=== PATIENT | male | born 1950 | race Caucasian/White ===

== ENCOUNTER → 2016-11-05 | Outpatient (CLI) | payer BC, MEDICARE ==
[~2016-11-05] VITALS: Ht 182.9 cm; Wt 129.3 kg
[~2016-11-05] MED LIST: AMLO10TA82 PO; ASP325TEC PO; ASP81CT PO; ASP81TEC PO; ATEN25TA PO; ATOR40TA PO; BENA20TA72 PO; BENZAPRIL; CATHETER FLUSH 10 ML SYR IV PRN; CEPH500C PO; CITA40TA19 PO; CPR500T PO; GLBR5T PO; HYDR-2889 PO; IBP800T PO; LEVO125T6 PO; METH4TAB PO; MTF500T PO; MTP25TSR PO; MTP50T PO; NAPR-243 PO; NFMET1000 PO; OMG1KC PO; PRAM0.257 PO; PRAS10TA6 PO; PROP1TAB77 PO; REGADENOSON 0.4 MG/5 ML SYR (LEXISCAN) IV ONE; TRM50T PO; VIT1TABL93 PO; ZOLP10TA5 PO; [UNRECOGNIZED DRUG - OTHER]; [UNRECOGNIZED DRUG - OTHER]; kenalog INJ
[2016-11-05 09:20] VITALS: BP 189/84
[2016-11-05 09:24] VITALS: BP 185/104
[2016-11-05 09:26] VITALS: BP 196/95
--- NOTE | 2016-11-07 08:49 | STRESS TEST ---
DATE OF SERVICE: 11/05/2016 RESTING AND POST REGADENOSON TECHNETIUM-99M TETROFOSMIN SPECT CT IMAGING ORDERING PHYSICIAN: Dr. Mars. PRIMARY CARE PHYSICIAN: Dr. Fields. CLINICAL DIAGNOSES: Coronary artery disease, diabetes, hypertension, hyperlipidemia. Baseline images were carried out after injection of 10.6 mCi of technetium-99m tetrofosmin. This was followed by 0.4 mg regadenoson and 28.5 mCi for stress imaging. The electrocardiogram showed sinus rhythm with frequent isolated premature ventricular contractions, sometimes in a bigeminal pattern. The electrocardiogram did not change significantly with regadenoson infusion. The patient reported some headache following regadenoson infusion, which resolved in a few minutes. Review of images at rest and following stress indicates a fixed perfusion defect in the inferolateral wall. Gated images show global hypokinesis of the left ventricle and inferolateral hypokinesis to akinesis. Left ventricular ejection fraction is calculated to be 50%. Left ventricular end diastolic volume is 178 mL. TID is absent (1). CONCLUSIONS: 1. This study is indicative of an inferolateral myocardial infarction without ischemia. 2. Inferolateral hypokinesis to akinesis. 3. Mild global hypokinesis of the left ventricle. 4. Left ventricular ejection fraction is calculated to be 50%, but appears to be subjectively somewhat lower (estimated to be 40%-45%). 5. Moderate cardiomegaly. Job ID: [id number] DocumentID: [id number] Dictated Date: 11/05/2016 13:12:36 Construction Rep Date: 11/05/2016 14:42:58 Dictated By: LYNDA MARS MD, MA, FACP, FACC,
== END ==
LOC: CARD 07:53
PROVIDERS: ATTEND Internal Medicine Cardiovascular Disease
DX: I25.10 Atherosclerotic heart disease of native coronary artery without angina pectoris (principal); R94.31 Abnormal electrocardiogram [ECG] [EKG]; E11.9 Type 2 diabetes mellitus without complications; E78.4 Other hyperlipidemia; I10 Essential (primary) hypertension; E66.09 Other obesity due to excess calories; I49.3 Ventricular premature depolarization
CPT/HCPCS: 78452; 93017

== ENCOUNTER → 2016-11-06 | Outpatient (CLI) | payer BC, MEDICARE ==
[~2016-11-06] MED LIST changes: -CATHETER FLUSH 10 ML SYR IV PRN; -REGADENOSON 0.4 MG/5 ML SYR (LEXISCAN) IV ONE
== END ==
LOC: CARD 15:12
PROVIDERS: ATTEND Internal Medicine Cardiovascular Disease
DX: I25.10 Atherosclerotic heart disease of native coronary artery without angina pectoris (principal); R94.31 Abnormal electrocardiogram [ECG] [EKG]; I49.3 Ventricular premature depolarization; I10 Essential (primary) hypertension; E78.4 Other hyperlipidemia; E11.9 Type 2 diabetes mellitus without complications; E66.09 Other obesity due to excess calories

== ENCOUNTER 2017-03-08 14:05 | Emergency (ER) | payer MEDICARE ==
[~2017-03-08] VITALS: Ht 180.3 cm; Wt 126.1 kg
--- OUTSIDE RECORDS SUMMARY | 2017-03-08 14:10 | XMS REPORT | Clinical Summary ---
Author Author [facility] Organization [facility] Address Unknown Phone Unavailable Care Team Providers Care Magneto Electrician Name Role Phone PCP Unavailable Source Comments Some departments are not documenting in the electronic medical record. If you do not see the information that you expected, contact Release of Information in the Health Information Management department at [phone] for further assistance in locating additional records.[facility] Allergies Active Allergy Reactions Severity Noted Date Comments Morphine 07/23/2006 Allergy recorded in SMS: Morphine~Reactions: "SPASMS" Current Medications Prescription Sig. Disp. Refills Start End Date Status Date propoxyphene 100 04/20/20 Active mg/acetamin 650 mg(+) 07 (DARVOCET-N 100) 100/650 mg PO Tab LEXAPRO PO 04/20/20 Active 07 XANAX PO 04/20/20 Active 07 CALCIUM + D PO 04/20/20 Active 07 VITAMIN E (BULK) MISC 04/20/20 Active 07 FISH OIL PO 04/20/20 Active 07 aspirin EC 81 mg PO TbEC 04/20/20 Active 07 KEFLEX PO 04/20/20 Active 07 Active Problems Problem Noted Date Pain in joint, pelvic region and thigh 07/08/2007 Pain in joint, lower leg 07/08/2007 Social History Tobacco Use Types Packs/Day Years Used Date Never Smoker Alcohol Use Drinks/Week oz/Week Comments No Sex Assigned at Date Recorded Not on file Last Filed Vital Signs Not on file Plan of Treatment Health Maintenance Due Date Last Done Comments HEPATITIS C SCREENING 1950 PHYSICAL (COMPREHENSIVE) 09/07/1959 EXAM PERTUSSIS VACCINE 09/07/1963 TETANUS VACCINE 1969 COLORECTAL CANCER 2002 SCREENING SHINGLES VACCINE 2012 INFLUENZA VACCINE 12/24/2016 Results Not on filefrom Last 3 Months
--- OUTSIDE RECORDS SUMMARY | 2017-03-08 14:10 | XMS REPORT | Continuity of Care Document ---
Author Author [facility] Organization [facility] Address Unknown Phone Unavailable Allergies Active Description Code Type Severity Reaction Onset Reported/Identified Relationship to Patient Clinical Status Yes morphine [id number] Drug Allergy Unknown N/A 07/22/2006 Medications Problems Date Dx Coded Attending Type Code Diagnosis Diagnosed By 06/01/2014 GALINA DOMINGUEZ, MISTY Byrd Ot 786.59 09/13/2014 MISTY MOJICA MD Ot 443.89 10/22/2014 MISTY MOJICA MD Ot 443.89 11/07/2016 ELLEN DOMINGUEZ FACC, LYNDA FACP CCDS Ot E11.9 TYPE 2 DIABETES MELLITUS WITHOUT COMPLIC 11/07/2016 ELLEN DOMINGUEZ FACC, LYNDA FACP CCDS Ot E66.09 OTHER OBESITY DUE TO EXCESS CALORIES 11/07/2016 LYNDA HUGHES MD, FACC FACP CCDS Ot E78.4 OTHER HYPERLIPIDEMIA 11/07/2016 ELLEN DOMINGUEZ FACC, LYNDA FACP CCDS Ot I10 ESSENTIAL (PRIMARY) HYPERTENSION 11/07/2016 ELLEN DOMINGUEZ FACC, LYNDA FACP CCDS Ot I25.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[place] CORONARY 11/07/2016 ELLEN DOMINGUEZ FACC, LYNDA FACP CCDS Ot I49.3 VENTRICULAR PREMATURE DEPOLARIZATION 11/07/2016 ELLEN DOMINGUEZ FACC, LYNDA FACP CCDS Ot R94.31 ABNORMAL ELECTROCARDIOGRAM [ECG ] [EKG] 11/11/2016 ELLEN DOMINGUEZ FACC, LYNDA FACP CCDS Ot E11.9 TYPE 2 DIABETES MELLITUS WITHOUT COMPLIC 11/11/2016 ELLEN DOMINGUEZ FACC, ALI FACP CCDS Ot E66.09 OTHER OBESITY DUE TO EXCESS CALORIES 11/11/2016 ELLEN DOMINGUEZ FACC, ALI FACP CCDS Ot E78.4 OTHER HYPERLIPIDEMIA 11/11/2016 ELLEN DOMINGUEZ FACC, ALI FACP CCDS Ot I10 ESSENTIAL (PRIMARY) HYPERTENSION 11/11/2016 ELLEN DOMINGUEZ FACC, ALI FACP CCDS Ot I25.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[place] CORONARY 11/11/2016 ELLEN CHENC, ALI FACP CCDS Ot I49.3 VENTRICULAR PREMATURE DEPOLARIZATION 11/11/2016 ELLEN CHENC, ALI FACP CCDS Ot R94.31 ABNORMAL ELECTROCARDIOGRAM [ECG ] [EKG] 11/13/2016 ELLEN DOMINGUEZ FACC, ALI FACP CCDS Ot E11.9 TYPE 2 DIABETES MELLITUS WITHOUT COMPLIC 11/13/2016 ELLEN DOMINGUEZ FACC, ALI FACP CCDS Ot E66.09 OTHER OBESITY DUE TO EXCESS CALORIES 11/13/2016 ELLEN CHENC, ALI FACP CCDS Ot E78.4 OTHER HYPERLIPIDEMIA 11/13/2016 ELLEN CHENC, ALI FACP CCDS Ot I10 ESSENTIAL (PRIMARY) HYPERTENSION 11/13/2016 ELLEN CHENC, ALI FACP CCDS Ot I25.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[place] CORONARY 11/13/2016 ELLEN DOMINGUEZ FACC, ALI FACP CCDS Ot I49.3 VENTRICULAR PREMATURE DEPOLARIZATION 11/13/2016 ELLEN DOMINGUEZ FACC, ALI FACP CCDS Ot R94.31 ABNORMAL ELECTROCARDIOGRAM [ECG ] [EKG] 11/13/2016 ELLEN DOMINGUEZ FACC, ALI FACP CCDS Ot E11.9 TYPE 2 DIABETES MELLITUS WITHOUT COMPLIC 11/13/2016 ELLEN DOMINGUEZ FACC, ALI FACP CCDS Ot E66.09 OTHER OBESITY DUE TO EXCESS CALORIES 11/13/2016 ELLEN DOMINGUEZ FACC, ALI FACP CCDS Ot E78.4 OTHER HYPERLIPIDEMIA 11/13/2016 ELLEN DOMINGUEZ FACC, ALI FACP CCDS Ot I10 ESSENTIAL (PRIMARY) HYPERTENSION 11/13/2016 ELLEN DOMINGUEZ FACC, ALI FACP CCDS Ot I25.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[place] CORONARY 11/13/2016 ELLEN DOMINGUEZ FACC, ALI FACP CCDS Ot I49.3 VENTRICULAR PREMATURE DEPOLARIZATION 11/13/2016 ELLEN CHENC, ALI FACP CCDS Ot R94.31 ABNORMAL ELECTROCARDIOGRAM [ECG ] [EKG] 11/13/2016 ELLEN DOMINGUEZ FACC, ALI FACP CCDS Ot E11.9 TYPE 2 DIABETES MELLITUS WITHOUT COMPLIC 11/13/2016 ELLEN DOMINGUEZ FACC, ALI FACP CCDS Ot E66.09 OTHER OBESITY DUE TO EXCESS CALORIES 11/13/2016 ELLEN CHENC, ALI FACP CCDS Ot E78.4 OTHER HYPERLIPIDEMIA 11/13/2016 ELLEN CHENC, ALI FACP CCDS Ot I10 ESSENTIAL (PRIMARY) HYPERTENSION 11/13/2016 ELLEN CHENC, ALI FACP CCDS Ot I25.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[place] CORONARY 11/13/2016 ELLEN DOMINGUEZ FACC, ALI FACP CCDS Ot I49.3 VENTRICULAR PREMATURE DEPOLARIZATION 11/13/2016 ELLEN DOMINGUEZ FACC, ALI FACP CCDS Ot R94.31 ABNORMAL ELECTROCARDIOGRAM [ECG ] [EKG] 11/28/2016 ELLEN CHENC, ALI FACP CCDS Ot E11.9 TYPE 2 DIABETES MELLITUS WITHOUT COMPLIC 11/28/2016 ELLEN DOMINGUEZ FACC, ALI FACP CCDS Ot E66.09 OTHER OBESITY DUE TO EXCESS CALORIES 11/28/2016 ELLEN DOMINGUEZ FACC, ALI FACP CCDS Ot E78.4 OTHER HYPERLIPIDEMIA 11/28/2016 ELLEN DOMINGUZE FACC, ALI FACP CCDS Ot I10 ESSENTIAL (PRIMARY) HYPERTENSION 11/28/2016 ELLEN DOMINGUEZ FACC, ALI FACP CCDS Ot I25.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[place] CORONARY 11/28/2016 ELLEN CHENC, ALI FACP CCDS Ot I49.3 VENTRICULAR PREMATURE DEPOLARIZATION 11/28/2016 ELLEN CHENC, ALI FACP CCDS Ot R94.31 ABNORMAL ELECTROCARDIOGRAM [ECG ] [EKG] 12/09/2016 ELLEN DOMINGUEZ FACC, ALI FACP CCDS Ot E11.9 TYPE 2 DIABETES MELLITUS WITHOUT COMPLIC 12/09/2016 ELLEN CHENC, ALI FACP CCDS Ot E66.09 OTHER OBESITY DUE TO EXCESS CALORIES 12/09/2016 ELLEN DOMINGUEZ FACC, ALI FACP CCDS Ot E78.4 OTHER HYPERLIPIDEMIA 12/09/2016 ELLEN DOMINGUEZ FACC, ALI FACP CCDS Ot I10 ESSENTIAL (PRIMARY) HYPERTENSION 12/09/2016 ELLEN CHENC, ALI FACP CCDS Ot I25.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[place] CORONARY 12/09/2016 ELLEN CHENC, ALI FACP CCDS Ot I49.3 VENTRICULAR PREMATURE DEPOLARIZATION 12/09/2016 ELLEN DOMINGUEZ FACC, ALI FACP CCDS Ot R94.31 ABNORMAL ELECTROCARDIOGRAM [ECG ] [EKG] 12/24/2016 GALINA DOMINGUEZ, MISTY Byrd Ot 574.20 CHOLELITHIASIS NOS Procedures Results Encounters ACCT No. Visit Date/Time Discharge Status Pt. Type Provider Facility Loc./Unit Complaint [id number] 02/19/2017 07:52:00 2016 23:59:59 CLS Preadmit ELLEN DOMINGUEZ FACC, ALI FACP CCDS [facility] RAD WEAKNESS,NAUSEA [id number] 11/06/2016 15:12:00 2016 23:59:59 CLS Outpatient ELLEN DOMINGUEZ FACC ALI FACP CCDS [facility] CARD PVC I49.3 [id number] 11/05/2016 07:30:00 2016 23:59:59 CLS Outpatient LYNDA HUGHES MD, FACC FACOmar CCDS [facility] CARD I25.10 [id number] 09/08/2014 15:13:00 2014 23:59:59 CLS Outpatient MISTY MOJICA MD [facility] RAD [id number] 12/03/2013 14:37:00 2013 23:59:59 CLS Outpatient MISTY MOJICA MD [facility] LABNPT Calculus of gallbladder without mention of cholecy [id number] 12/03/2013 16:27:00 2013 16:28:00 DIS Outpatient [id number] 11/23/2013 16:54:00 2013 23:59:59 CLS Outpatient [id number] 10/22/2013 13:56:00 2013 23:59:59 CLS Outpatient MISTY MOJICA MD [facility] CARD [id number] 04/05/2013 16:17:00 2012 23:59:59 CLS Outpatient
--- NOTE | 2017-03-08 14:32 | ED Cardiac General ---
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 He was also told that he had several small bleeds that the hat blocking machine operator wanted to observe and see back in the week or 2. Patient's had no chest pain or shortness of breath. He is checked his blood pressure home a couple times and it's been elevated above 200 systolic which to so decided to come to ER today to have it evaluated. He ran out of strips to check his blood sugar the last 3 days. He says is been taking his medications as prescribed because his makes him. He is on metoprolol for blood pressure and has a history of [address] Pina. The metoprolol was recently changed to 3 times a day because it was causing bradycardia. He denies nausea, speech changes, facial asymmetry, numbness, however he does have a history of paresthesias from his peripheral neuropathy in his hands and feet. No cough. No shortness of breath. States he recently had a echocardiogram done because a third heart sound was heard by the manager procurement. He was told everything was okay on it. Allergies and Home Medications Allergies Coded Allergies: morphine (Verified Allergy, Unknown, 07/22/06) Home Medications Amlodipine Besylate 10 Mg Tablet, 1 EACH PO DAILY, (Reported) Aspirin 81 Mg Chew, 81 MG PO BID, (Reported) Aspirin 81 Mg Tabec, 81 MG PO DAILY, (Reported) Atenolol 25 Mg Tablet, 1 EACH PO BID, (Reported) Atorvastatin Calcium 40 Mg Tablet, 40 MG PO HS, (Reported) Benazepril Hcl 20 Mg Tablet, 20 MG PO, (Reported) Ciprofloxacin 500 Mg Tablet, 1 TAB PO BID for 7 Days Prescribed by: IRA STEPHENS on 09/08/12 1128 Citalopram Hydrobromide 40 Mg Tablet, 40 MG PO DAILY, (Reported) Glyburide 5 Mg Tab, 5 MG PO BID, (Reported) Ibuprofen 800 Mg Tab, 800 MG PO Q8HR PRN, #30 Prescribed by: IRA STEPHENS on 09/08/12 1128 Levothyroxine Sodium 125 Mcg Tablet, 1 EACH PO DAILY, (Reported) Metformin Hcl 500 Mg Tablet, 500 MG PO BID WITH MEALS, (Reported) Metoprolol Tartrate 50 Mg Tablet, 50 MG PO BID, (Reported) Pramipexole Di-Hcl 0.25 Mg Tablet, 0.25 MG PO DAILY, (Reported) Tramadol Hcl 50 Mg Tab, 100 MG PO Q6H PRN, (Reported) Tramadol Hcl 50 Mg Tab, 1-2 TAB PO Q6H, #20 Prescribed by: IRA STEPHENS on 09/08/12 1128 Vit D3/Folic Acid/B2/B6/B12 1 Each Tablet, 1 EACH PO UD, (Reported) Review of Systems Constitutional: No chills, No diaphoresis, No fever EENTM: Blurred Vision, No Double Vision, No Eye Pain Respiratory: Denies Cough, Denies Shortness of Air Cardiovascular: Denies Chest Pain, Denies Edema, Denies Lightheadedness, Denies Palpitations, Denies Syncope Gastrointestinal: Denies Abdomen Distended, Denies Abdominal Pain, Denies Constipated, Denies Diarrhea, Denies Nausea, Denies Vomiting Genitourinary: Denies Burning, Denies Discharge Musculoskeletal: No joint pain, No joint swelling Skin: No pruritus, No rash Psychiatric/Neurological: Headache (occ, mild), Denies Numbness, Paresthesia ( Chronic P. Neuropathy) Past Bsozozm-Pnybfy-Cyquqo Hx Patient Social History Alcohol Use: Denies Use Recreational Drug Use: No Smoking Status: Never a Smoker Recent Foreign Travel: No Contact w/Someone Who Travel: No Reproductive System Hx Reproductive Disorders: No Genitourinary Genitourinary Disorders: Kidney Stones Gastrointestinal Gastrointestinal Disorders: Gastrointestinal Bleed Endocrine Endocrine Disorders: Diabetes, Non-Insulin dep Physical Exam Vital Signs Vital Sign - Last 12Hours 03/08/17 14:10 Temp 97.5 Pulse 62 Resp 23 B/P (MAP) 211/101 Pulse Ox 96 Capillary Refill : General Appearance: No Apparent Distress, Obese HEENT: PERRL/EOMI, Normal ENT Inspection, Pharynx Normal Neck: Full Range of Motion, Supple Respiratory: Chest Non Tender, Lungs Clear, Normal Breath Sounds Cardiovascular: Regular Rate, Rhythm, No Edema Gastrointestinal: Normal Bowel Sounds, Non Tender, Soft Extremity: Normal Capillary Refill, Non Tender, No Calf Tenderness Neurologic/Psychiatric: Alert, Oriented x3 Skin: Normal Color, Warm/Dry Progress/Results/Core Measures Results/Orders Lab Results Laboratory Tests Test 03/08/17 14:21 03/08/17 14:25 03/08/17 15:37 Range/Units Glucometer 196 H 70-110 MG/DL White Blood Count 6.8 4.3-11.0 10^3/uL Red Blood Count 4.93 4.35-5.85 10^6/uL Hemoglobin 14.2 13.3-17.7 G/DL Hematocrit 43 40-54 % Mean Corpuscular Volume 86 80-99 FL Mean Corpuscular Hemoglobin 29 25-34 PG Mean Corpuscular Hemoglobin Concent 33 32-36 G/DL Red Cell Distribution Width 14.6 H 10.0-14.5 % Platelet Count 254 130-400 10^3/uL Mean Platelet Volume 10.5 H 7.4-10.4 FL Neutrophils (%) (Auto) 59 42-75 % Lymphocytes (%) (Auto) 27 12-44 % Monocytes (%) (Auto) 8 0-12 % Eosinophils (%) (Auto) 5 0-10 % Basophils (%) (Auto) 0 0-10 % Neutrophils # (Auto) 4.1 1.8-7.8 X 10^3 Lymphocytes # (Auto) 1.8 1.0-4.0 X 10^3 Monocytes # (Auto) 0.6 0.0-1.0 X 10^3 Eosinophils # (Auto) 0.4 H 0.0-0.3 10^3/uL Basophils # (Auto) 0.0 0.0-0.1 10^3/uL Prothrombin Time 12.4 12.2-14.7 SEC INR Comment 0.9 0.8-1.4 Activated Partial Thromboplast Time 30 24-35 SEC D-Dimer 0.62 H 0.00-0.49 UG/ML Sodium Level 137 135-145 MMOL/L Potassium Level 4.4 3.6-5.0 MMOL/L Chloride Level 102 98-107 MMOL/L Carbon Dioxide Level 26 21-32 MMOL/L Anion Gap 9 5-14 MMOL/L Blood Urea Nitrogen 21 H 7-18 MG/DL Creatinine 1.18 0.60-1.30 MG/DL Estimat Glomerular Filtration Rate > 60 BUN/Creatinine Ratio 18 Glucose Level 228 H 70-105 MG/DL Calcium Level 9.6 8.5-10.1 MG/DL Magnesium Level 1.7 L 1.8-2.4 MG/DL Total Bilirubin 0.8 0.1-1.0 MG/DL Aspartate Amino Transf (AST/SGOT) 16 5-34 U/L Alanine Aminotransferase (ALT/SGPT) 21 0-55 U/L Alkaline Phosphatase 67 40-136 U/L Troponin I < 0.30 <0.30 NG/ML C-Reactive Protein High Sensitivity 0.24 0.00-0.50 MG/DL B-Type Natriuretic Peptide 190.1 H <100.0 PG/ML Total Protein 7.4 6.4-8.2 GM/DL Albumin 4.1 3.2-4.5 GM/DL Thyroid Stimulating Hormone (TSH) 2.46 0.35-4.94 UIU/ML Urine Opiates Screen NEGATIVE NEGATIVE Urine Oxycodone Screen NEGATIVE NEGATIVE Urine Methadone Screen NEGATIVE NEGATIVE Urine Propoxyphene Screen NEGATIVE NEGATIVE Urine Barbiturates Screen NEGATIVE NEGATIVE Ur Tricyclic Antidepressants Screen NEGATIVE NEGATIVE Urine Phencyclidine Screen NEGATIVE NEGATIVE Urine Amphetamines Screen NEGATIVE NEGATIVE Urine Methamphetamines Screen NEGATIVE NEGATIVE Urine Benzodiazepines Screen NEGATIVE NEGATIVE Urine Cocaine Screen NEGATIVE NEGATIVE Urine Cannabinoids Screen NEGATIVE NEGATIVE My Orders Orders - ALEIDA,CHUCK J Chest 1 View, Ap/Pa Only (03/08/17 14:) Troponin I (03/08/17 14:) Ekg Tracing (03/08/17:) Saline Lock/Iv-Start (03/08/17:) Monitor-Rhythm Ecg Trace Only (03/08/17:) BNP (03/08/17 14:) Cbc With Automated Diff (03/08/17:) Comprehensive Metabolic Panel (03/08/17:) Hs C Reactive Protein (03/08/17:) Fibrin Degradation Products (03/08/17 14:) Drug Screen Stat (Urine) (03/08/17:) Magnesium (03/08/17 14:) Protime With Inr (03/08/17:) Partial Thromboplastin Time (03/08/17 14:23) Thyroid Stimulating Hormone (03/08/17 14:23) Lisinopril Tablet (Zestril Tablet) (03/08/17 15:00) Magnesium Oxide Tablet (Mag Ox Tablet) (03/08/17 16:30) Medications Given in ED Current Medications Medications Dose Ordered Sig/Sofi Route Start Time Stop Time Status Last Admin Dose Admin Lisinopril 20 mg ONCE ONCE PO 03/08/17 15:00 03/08/17 15:01 DC 03/08/17 15:23 20 MG Vital Signs/I&O Vital Sign - Last 12Hours 03/08/17 14:10 Temp 97.5 Pulse 62 Resp 23 B/P (MAP) 211/101 Pulse Ox 96 Point of Care Testing Finger Stick Blood Glucose: 196 Blood Glucose Action Taken: RN AND DR NOTIFIED Progress Note : Time: 16:37 Progress Note Blood pressure went down very well with just rest. We'll go ahead and start him on some lisinopril given his heart history. He doesn't seem to have any contra indication of this. Another viable option would be a diuretic but we already had given him the lisinopril by the time that we saw his x-ray. We'll have him follow-up with his primary care physician or cardiology Friday. ECG Initial ECG Impression Date: Mar 08, 2017 Initial ECG Impression Time: 14:11 Initial ECG Rate: 64 Initial ECG Rhythm: Normal Sinus Initial ECG Intervals: Normal Initial ECG Impression: Normal Initial ECG Comparisson: No Previous ECG Available Comment No T-wave elevation or depression. Diagnostic Imaging Diagonstic Imaging: Xray Plain Films/CT/US/NM/MRI: chest Comments NAME: RUBEN [facility] REC#: [id number] PHYSICIAN: CHUCK SHIN MD CC: JUANY KAUR MD; CHUCK SHIN Page 1 of 1 RADIOLOGY REPORT [place]IA [place] CC: JUANY KAUR MD; CHUCK SHIN Page 1 of 1 RADIOLOGY REPORT NAME: RUBEN [facility] REC#: [id number] PT STATUS: REG ER : 1950 PHYSICIAN: CHUCK SHIN MD ADMIT DATE: 03/08/17/ER Signed Date of Exam: 03/08/17 CHEST 1 VIEW, AP/PA ONLY INDICATION: Hypertension. COMPARISON: 12/11/2010. FINDINGS: Visible lungs are clear. Please note evaluation of the lower lobes is limited by portable technique. No pleural effusion or pneumothorax. Heart is enlarged. Pulmonary vascular redistribution. IMPRESSION: 1. Cardiomegaly with suggestion of pulmonary venous hypertension. No evidence of ale pulmonary edema. Dictated by: Dictated on workstation # [id number] Dict: 03/08/17 1447 Trans: 03/08/17 1455 Interpreted by: JUANY KAUR MD Electronically signed by: JUANY KAUR MD 03/08/17 1455 Reviewed: Reviewed by Me Departure Impression Impression: Primary Impression: Asymptomatic hypertensive urgency Disposition: 01 HOME, SELF-CARE Condition: Stable Departure-Patient Inst. Decision time for Depature: 16:40 Referrals: MISTY MOJICA MD (PCP/Family) Primary Care Physician Patient Instructions: High Blood Pressure (DC) Add. Discharge Instructions: Start taking the lisinopril 20 mg once a day in the morning. If he checked her blood pressure first thing in the morning and its above 200 or your bottom number as above 100 you should double up and take 40 mg of lisinopril daily until you see your doctor. Friday morning please call Dr. Mojica and get an appointment from his clinic at [phone] this week or next. If you begin to have severe headaches, chest pain, nausea and vomiting he should return to the ER for further evaluation and management. All discharge instructions reviewed with patient and/or family. Voiced understanding. Scripts Lisinopril (Lisinopril) 20 Mg Tablet 20 MG PO DAILY for 30 Days, #30 TAB 0 Refills Prov: CHUCK SHIN 03/08/17 Copy Copies To 1: MISTY MOJICA MD Copies To 2: LYNDA HUGHES MD FACP [facility] CCDS CHUCK SHIN Mar 08, 2017 14:32
[2017-03-08 14:37] LABS: BASOPHILS % (AUTO) 0 % (0-10); EOSINOPHILS # (AUTO) 0.4 10^3/uL (0.0-0.3); EOSINOPHILS % (AUTO) 5 % (0-10); LYMPHOCYTES # (AUTO) 1.8 X 10^3 (1.0-4.0); LYMPHOCYTES % (AUTO) 27 % (12-44); MEAN CORPUSCULAR HEMOGLOBIN 29 PG (25-34); MEAN CORPUSCULAR HGB CONC 33 G/DL (32-36); MEAN CORPUSCULAR VOLUME 86 FL (80-99); MEAN PLATELET VOLUME 10.5 FL (7.4-10.4); MONOCYTES # (AUTO) 0.6 X 10^3 (0.0-1.0); MONOCYTES % (AUTO) 8 % (0-12); NEUTROPHILS # (AUTO) 4.1 X 10^3 (1.8-7.8); NEUTROPHILS % (AUTO) 59 % (42-75); PLATELET COUNT 254 10^3/uL (130-400); RED BLOOD COUNT 4.93 10^6/uL (4.35-5.85); RED CELL DISTRIBUTION WIDTH 14.6 % (10.0-14.5); WHITE BLOOD COUNT 6.8 10^3/uL (4.3-11.0)
[2017-03-08 14:45] LABS: INR 0.9 (0.8-1.4); PROTHROMBIN TIME PATIENT 12.4 SEC (12.2-14.7)
[2017-03-08 14:55] LABS: ALANINE AMINOTRANSFERASE 21 U/L (0-55); ALBUMIN 4.1 GM/DL (3.2-4.5); ANION GAP 9 MMOL/L (5-14); ASPARTATE AMINO TRANSFERASE 16 U/L (5-34); BILIRUBIN,TOTAL 0.8 MG/DL (0.1-1.0); BLOOD UREA NITROGEN 21 MG/DL (7-18); BUN/CREATININE RATIO 18; CALCIUM 9.6 MG/DL (8.5-10.1); CARBON DIOXIDE 26 MMOL/L (21-32); CHLORIDE 102 MMOL/L (98-107); CREATININE SERUM 1.18 MG/DL (0.60-1.30); GFR ESTIMATED > 60; GLUCOSE 228 MG/DL (70-105); MAGNESIUM 1.7 MG/DL (1.8-2.4); POTASSIUM 4.4 MMOL/L (3.6-5.0); SODIUM 137 MMOL/L (135-145); TOTAL PROTEIN 7.4 GM/DL (6.4-8.2); hs C REACTIVE PROTEIN 0.24 MG/DL (0.00-0.50)
--- NOTE | 2017-03-08 14:55 | Diagnostic Imaging Report ---
INDICATION: Hypertension. COMPARISON: 12/11/2010. FINDINGS: Visible lungs are clear. Please note evaluation of the lower lobes is limited by portable technique. No pleural effusion or pneumothorax. Heart is enlarged. Pulmonary vascular redistribution. IMPRESSION: 1. Cardiomegaly with suggestion of pulmonary venous hypertension. No evidence of ale pulmonary edema. Dictated by: Dictated on workstation # [id number]
[2017-03-08] MEDS ORDERED: lisINopril 20 MG (ZESTRIL) TAB PO ONE (15:00)
[2017-03-08 15:15] LABS: THYROID STIMULATING HORMONE 2.46 UIU/ML (0.35-4.94)
[2017-03-08] MEDS ORDERED: MAGNESIUM OXIDE (MAG-OX)400 MG TAB PO ONE (16:30)
[2017-03-08] MEDS ORDERED: LISI-552 PO (16:42)
[2017-03-08 16:47] VITALS: BP 187/95
== END 2017-03-08 16:46 | disposition home or self-care (01) ==
LOC: EDUNIT# 14:05 → ER 14:06
DX: I16.0 Hypertensive urgency (principal); E11.9 Type 2 diabetes mellitus without complications; Z79.82 Long term (current) use of aspirin; Z79.84 Long term (current) use of oral hypoglycemic drugs; Z87.19 Personal history of other diseases of the digestive system; Z87.442 Personal history of urinary calculi
CPT/HCPCS: 36415; 71010; 80053; 80306; 82962; 83735; 83880; 84443; 84484; 85025; 85379; 85610; 85730; 86141; 93005; 93041

== ENCOUNTER → 2017-04-22 | Outpatient (CLI) | payer MEDICARE ==
[~2017-04-22] MED LIST changes: +ACET325T38 PO; +ALPR0.5T7 PO; +ASPI-999 PO; +CITA40TA11 PO; +CLOP75TA28 PO; +FURO40TA4 PO; +GABA-486 PO; +GLIP10TA13 PO; +LISI-552 PO; +LISI40TA PO; +LOVA40TA2 PO; +MAGN400T29 PO; +MELO15TA39 PO; +METF1000 PO; +METO50TA2 PO; +OMEP40CA36 PO; +POTA10TA6 PO; +TRAM50TA2 PO
--- NOTE | 2017-04-22 12:00 | Diagnostic Imaging Report ---
PROCEDURE: CT abdomen and pelvis without contrast. TECHNIQUE: Multiple contiguous axial images were obtained through the abdomen and pelvis without the use of intravenous contrast. INDICATION: Back pain. History of nephrolithiasis. Exam compared 11/23/2013. FINDINGS: There is a large dense stone in the mid right ureter found at the level of the L5 inferior endplate with Hounsfield units 820 and measuring 8.3 mm AP by 6.6 mm transverse by 7.8 mm cephalocaudal. This calculus results in moderate upstream hydroureteronephrosis and is a new finding from prior. Nonobstructing intrarenal stones on the right present the largest within the mid third calyx measures a diameter of 5.7 mm. The previous obstructing left-sided UVJ stone present on the prior exam has resolved. The left kidney is nondilated. There are several intrarenal stones in the left kidney nonobstructing. The largest within the lower pole calyx measuring 4.9 mm. The liver, gallbladder, spleen, adrenals and pancreas are nonacute. Tiny stones within the gallbladder lumen chronic. There is no bowel or biliary tract obstruction. There is noninflamed sigmoid diverticulosis. Urinary bladder unremarkable. Severe chronic arthritic changes and postoperative sequelae to the right hip stable. No acute appearing bony abnormality. IMPRESSION: Large dense mid right ureteral stone 8.3 mm maximal dimension with moderate upstream hydroureteronephrosis. Additional nonobstructing intrarenal stones bilaterally present. We note resolution of previous left hydronephrosis with interval resolution of a previous large left UVJ stone. Cholelithiasis and noninflamed diverticulosis. Additional stable chronic findings unchanged. Dictated by: Dictated on workstation # [id number]
== END ==
LOC: RAD 11:28
PROVIDERS: ATTEND Nurse Practitioner Family
DX: N13.2 Hydronephrosis with renal and ureteral calculous obstruction (principal); K80.20 Calculus of gallbladder without cholecystitis without obstruction; K57.90 Diverticulosis of intestine, part unspecified, without perforation or abscess without bleeding
CPT/HCPCS: 74176

== ENCOUNTER → 2017-05-05 | Outpatient (CLI) | payer MEDICARE ==
[~2017-05-05] MED LIST changes: +METO50TA15 PO; -METO50TA2 PO
--- NOTE | 2017-05-05 14:36 | Diagnostic Imaging Report ---
EXAMINATION: Renal ultrasound. INDICATION: Right flank pain. FINDINGS: The right kidney is 13.3 and the left kidney is 13.2 cm in length. There is mild to moderate hydronephrosis in the right kidney, similar to the 04/22/2017 CT scan findings. The left kidney demonstrates no hydronephrosis. The urinary bladder demonstrates no focal lesion. The right ureteric jet is absent. IMPRESSION: There is mild to moderate hydronephrosis on the right side, similar to the CT scan from 04/22/2017. There is an absent right ureteric jet within the urinary bladder which may relate to persistent obstruction in the right ureter from the ureteric stone demonstrated on that CT scan or a new right ureteric stone. Correlate clinically and with CT as needed. The report was faxed to the office of Guzman Velez APRN, by DOMINICK@2:35 PM. Dictated by: Dictated on workstation # [id number]
== END ==
LOC: RAD 13:09
PROVIDERS: ATTEND Nurse Practitioner Family
DX: N13.30 Unspecified hydronephrosis (principal)
CPT/HCPCS: 76770

== ENCOUNTER → 2017-09-30 | Outpatient (CLI) | payer MEDICARE, OTHER ==
[~2017-09-30] MED LIST changes: -METF1000 PO; +METF10002 PO
--- NOTE | 2017-09-30 16:47 | Diagnostic Imaging Report ---
CLINICAL INDICATION: Patient with low back pain and upper back pain with abnormal posture. EXAM: X-ray of the thoracic spine, AP and lateral views. COMPARISON: X-ray of the thoracic spine dated 04/05/2013. FINDINGS: The upper thoracic vertebrae are obscured on the lateral view due to overlapping bone and soft tissue. There is no gross acute fracture or dislocation. There is slight progression of moderately hypertrophic anterior spurs throughout the thoracic spine. 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 Dictated by: Dictated on workstation # [id number]
--- NOTE | 2017-09-30 16:52 | Diagnostic Imaging Report ---
Pelvis and bilateral hips. INDICATION: Hip pain. FINDINGS: A single AP view of the pelvis and AP and lateral views of both hip joints were obtained. The prior abdomen exam of 09/08/12 noted postsurgical changes involving the right acetabulum. Specifically, there is an orthopedic plate and screw fixation device overlying the acetabulum. The prior exam also revealed numerous calcifications in the soft tissues superior and lateral to the femoral head. Those findings are again evident on this study and no different. The fracture line extending through the right ischium seen previously is also again identified. There does appear to be somewhat greater degenerative disease involving the right hip joint than noted on the prior exam. There is at least moderate degenerative disease of the left hip joint. These degenerative changes have not progressed since the previous exam in 2012. Mild symmetrical sclerosis of the sacroiliac joints is again noted as well. There is no fracture or acute bony abnormality appreciated. The soft tissues are unremarkable. IMPRESSION: 1. There are post traumatic and degenerative changes involving the right hip. The degenerative disease has progressed somewhat since the prior exam of 2012. The degenerative changes of the left hip appear stable. 2. There is no acute bony abnormality appreciated. Dictated by: Dictated on workstation # [id number]
--- NOTE | 2017-09-30 16:53 | Diagnostic Imaging Report ---
EXAMINATION: Lumbar spine. INDICATION: Back pain. FINDINGS: AP, lateral, and spot lateral views were obtained. As noted on the prior lumbar spine exam of 04/05/2013, there is degenerative disc disease throughout the lumbar spine. Specifically, there is mild narrowing of the disc spaces at every level except L1-L2. There are also small osteophytes along the anterior aspects of each vertebral body. There is no fracture or acute bony abnormality appreciated. There is no sign of a paraspinal mass. The vena cava filter seen on the previous exam is no longer evident. There still appears to be a calcification overlying the left kidney. There may also be a small calcification overlying the right kidney. IMPRESSION: 1. There is no evidence for an acute bony abnormality. 2. The degenerative changes involving the lumbar spine seen on the prior exam have not progressed significantly. 3. If clinical concern regarding an underlying abnormality persists, then MRI will be recommended for further evaluation. Dictated by: Dictated on workstation # [id number]
== END ==
LOC: RAD 15:46
PROVIDERS: ATTEND Chiropractor
DX: M47.816 Spondylosis without myelopathy or radiculopathy, lumbar region (principal); M47.814 Spondylosis without myelopathy or radiculopathy, thoracic region; M16.11 Unilateral primary osteoarthritis, right hip; M16.12 Unilateral primary osteoarthritis, left hip
CPT/HCPCS: 72070; 72100; 73523

== ENCOUNTER → 2018-02-20 | Outpatient (CLI) | payer MEDICARE, OTHER ==
[~2018-02-20] MED LIST changes: +METF-399 PO; -METF10002 PO
--- NOTE | 2018-02-20 15:41 | Diagnostic Imaging Report ---
INDICATION: Chronic left foot pain. AP, oblique, and lateral views of the left foot are obtained. There is postop change of the distal tibia and fibula with marked narrowing of the ankle joint. There is joint space narrowing of the talocalcaneal joints. There is posterior and plantar calcaneal spurring. There is no acute fracture or acute bony abnormality. There is mild degenerative change of the first MTP joint. IMPRESSION: Chronic changes in left foot as above with no acute-appearing abnormality. Dictated by: Dictated on workstation # [id number]
--- NOTE | 2018-02-20 16:31 | Diagnostic Imaging Report ---
EXAMINATION: Left ankle, 3 views. COMPARISON: July 22, 2006. HISTORY: 67-year-old male, left foot and ankle pain. FINDINGS: There is sideplate and screw fixation hardware along the distal fibula. There appear to be 2 separate but immediately adjacent sideplates. This appearance is unchanged since July 22, 2006. There is no identified fracture of the fixation screws associated with the fibular side plates. There are also fixation wires at the level of the distal fibula. Sideplate and screw fixation hardware is also noted along the distal tibia. The side plate and fixation screws at the level of the distal tibia are intact. There is an additional fixation screw within the distal tibia which is also intact. There is sclerosis at the level of the distal tibial metaphysis similar to comparison exam. There is no well-defined residual fracture line of the tibia or fibula. There is severe tibiotalar joint space loss. There is no large tibiotalar joint effusion. There is degenerative type enthesophyte formation at the insertion of the Achilles tendon. There is a calcaneal heel spur. There are vascular calcifications. There is an os peroneum. IMPRESSION: 1. Unchanged appearance of the sideplate and screw fixation hardware at the level of the distal tibia and fibula without interval complication. 2. No residual fracture line is in the distal tibia or fibula. 3. 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 Dictated by: Dictated on workstation # [id number]
== END ==
LOC: RAD 14:09
DX: M79.672 Pain in left foot (principal); M19.072 Primary osteoarthritis, left ankle and foot; Z96.89 Presence of other specified functional implants
CPT/HCPCS: 73610; 73630

== ENCOUNTER → 2018-03-13 | Outpatient (CLI) | payer MEDICARE, OTHER ==
--- NOTE | 2018-03-13 14:37 | Diagnostic Imaging Report ---
PROCEDURE: CT left ankle without contrast. CT left foot without contrast. TECHNIQUE: Multiple contiguous axial images were obtained through the left foot and ankle without the use of intravenous contrast. Sagittal and coronal reformations were then performed. DATE: March 13, 2018. INDICATION: 67-year-old male, history of prior fracture. Left ankle and foot pain with walking. COMPARISON: Left foot and ankle radiographs February 20, 2018. FINDINGS: There is sideplate and screw fixation hardware along the distal tibia and distal fibula. The fixation hardware appears intact. There is no abnormal lucency surrounding the fixation screws. There is productive bone formation in the region of the syndesmosis compatible with sequela of prior syndesmotic injury. There is an outpouching of bone from the anterior aspect of the lateral margin of the distal tibia which does appear to at least have a thin communication with the adjacent tibia. This likely relates to the prior displaced fracture. There is a well-corticated ossification adjacent to the anterior aspect of the tibiotalar joint which may reflect an ossified intra-articular body on sagittal image 46 measuring 5 x 8 mm in size. There is severe tibiotalar joint space loss with wwfp-sd-uldz articulation, small anterior tibiotalar osteophytes, and areas of subchondral cystic change. There is very mild contour abnormality of the lateral talar dome such as seen on coronal image 166. The alignment of the ankle mortise appears grossly unremarkable. There is productive bone formation in the region of the tip of the medial malleolus and medial talus likely relating to sequela of remote prior injury. There is degenerative type enthesopathy at the insertion of the Achilles tendon. There is a calcaneal heel spur. CT evaluation specifically of the left foot is unremarkable. There is a normal variant small os navicularis. There are vascular calcifications present. IMPRESSION: 1. Intact fixation hardware in the distal tibia and fibula. 2. Severe tibiotalar arthritis with probable ossified intra-articular body anteriorly measuring 8 x 5 mm in size. There is deou-wc-rejn articulation at the tibiotalar joint. Dictated by: Dictated on workstation # [id number]
== END ==
LOC: RAD 12:25
DX: M19.072 Primary osteoarthritis, left ankle and foot (principal); Z87.81 Personal history of (healed) traumatic fracture; Z96.7 Presence of other bone and tendon implants
CPT/HCPCS: 73700

== ENCOUNTER → 2018-07-31 | Outpatient (CLI) | payer MEDICARE, OTHER ==
[~2018-07-31] VITALS: Ht 182.9 cm; Wt 138.3 kg
[~2018-07-31] MED LIST changes: +REGADENOSON 0.4 MG/5 ML SYR (LEXISCAN) IV ONE
[2018-07-31] MEDS: CATHETER FLUSH 10 ML SYR IV PRN ×2 (07:29→09:14)
[2018-07-31 08:54] VITALS: BP 144/72
--- NOTE | 2018-07-31 21:37 | STRESS TEST ---
DATE OF SERVICE: 07/31/2018 RESTING AND POST REGADENOSON TECHNETIUM-99M TETROFOSMIN SPECT CT IMAGING ORDERING PHYSICIAN: Tasha Cunha APRN PRIMARY PHYSICIAN: Melvin Jordan MD CLINICAL DIAGNOSIS: Coronary artery disease. Baseline images were carried out after injection of 10.58 mCi of technetium-99m Tetrofosmin. This was followed by 0.4 mg regadenoson and 30.6 mCi of technetium-99m Tetrofosmin for stress imaging. The electrocardiogram showed sinus rhythm at baseline with incomplete left bundle-branch block pattern. The electrocardiogram did not change significantly with the regadenoson infusion. Review of images at rest and following stress indicates an inferolateral perfusion defect, which is partially transient. Gated images show mild inferolateral hypokinesis. Left ventricular ejection fraction is calculated to be 53%. Left ventricular end diastolic volume is 115 mL. TID is absent (1.03). CONCLUSIONS: 1. The study is suggestive of an inferolateral myocardial infarction with a small to moderate amount of jerod-infarct ischemia. 2. Inferolateral hypokinesis. 3. Left ventricular ejection fraction is calculated to be 53%. 4. Mild cardiomegaly. Job ID: [id number] DocumentID: [id number] Dictated Date: 07/31/2018 15:58:44 Roller Varnisher Date: 07/31/2018 21:36:46 Dictated By: LYNDA HUGHES MD, MA, FACP, FACC,
== END ==
LOC: CARD 07:12
PROVIDERS: ATTEND Nurse Practitioner Family
DX: I25.10 Atherosclerotic heart disease of native coronary artery without angina pectoris (principal); R06.09 Other forms of dyspnea; I10 Essential (primary) hypertension; I25.5 Ischemic cardiomyopathy
CPT/HCPCS: 78452; 93017

== ENCOUNTER → 2019-11-15 | Outpatient (CLI) | payer MEDICARE, OTHER ==
[~2019-11-15] MED LIST changes: +ALLO100T PO; +AMLO5TAB9 PO; +CLOP75TA69 PO; +HYDR50TA3 PO; +METO100T12 PO; +OMEP40CA27 PO; -OMEP40CA36 PO; +PIOG45TA7 PO; -REGADENOSON 0.4 MG/5 ML SYR (LEXISCAN) IV ONE; +TMSL.4C PO; -TRAM50TA2 PO; +ZOLP5TAB7 PO
--- NOTE | 2019-11-15 15:45 | NUR ---
Pt received 6 ml of definity solution during echocardiogram. The patient tolerated the procedure with no complaints
== END ==
LOC: CARD 14:49
PROVIDERS: ATTEND Internal Medicine Cardiovascular Disease
DX: I25.10 Atherosclerotic heart disease of native coronary artery without angina pectoris (principal); I77.89 Other specified disorders of arteries and arterioles; E11.9 Type 2 diabetes mellitus without complications; E78.5 Hyperlipidemia, unspecified; I10 Essential (primary) hypertension; I49.3 Ventricular premature depolarization; R53.1 Weakness

== ENCOUNTER 2019-11-16 09:48 | Day surgery (SDC) | payer MEDICARE, OTHER ==
[2019-11-16] VITALS (11 sets, daily range): BP systolic 130–168; BP diastolic 61–96
[~2019-11-16] VITALS: Ht 182.9 cm; Wt 145.0 kg
[~2019-11-16 09:48] MED LIST changes: -ALLO100T PO; -AMLO5TAB9 PO; -CLOP75TA69 PO; -HYDR50TA3 PO; -METO100T12 PO; -PIOG45TA7 PO; -TMSL.4C PO; -ZOLP5TAB7 PO
[2019-11-16] MEDS ORDERED: NS IV 1000 ML 1,000 ML ONE (10:14)
[2019-11-16] MEDS ORDERED: LIDOCAINE 1% INJ 20 ML 20 ML VIAL ONE (10:14)
[2019-11-16] MEDS ORDERED: HEParin (CATH LAB) 1,000 ML IV ONE (10:14)
[2019-11-16] MEDS ORDERED: NS IV 1000 ML 1,000 ML IV SCH ×2 (10:30→14:09)
[2019-11-16 10:55] LABS: INR 0.9 (0.8-1.4); PROTHROMBIN TIME PATIENT 12.3 SEC (12.2-14.7)
[2019-11-16 11:05] LABS: ALBUMIN 4.3 GM/DL (3.2-4.5); CALCIUM 9.6 MG/DL (8.5-10.1); CREATININE SERUM 1.49 MG/DL (0.60-1.30); POTASSIUM 4.3 MMOL/L (3.6-5.0); TOTAL PROTEIN 7.5 GM/DL (6.4-8.2)
[2019-11-16] MEDS ORDERED: ZOLP5TAB7 PO (11:18)
[2019-11-16] MEDS ORDERED: ALLO100T PO (11:18)
[2019-11-16] MEDS ORDERED: PIOG45TA7 PO (11:18)
[2019-11-16] MEDS ORDERED: HYDR50TA3 PO (11:18)
[2019-11-16] MEDS ORDERED: TMSL.4C PO (11:18)
[2019-11-16] MEDS ORDERED: fentaNYL INJECTION 100 MCG/2 ML AMP ONE (12:37)
[2019-11-16] MEDS ORDERED: MIDAZOLAM 5 MG/5 ML (VERSED) VIAL ONE (12:37)
--- NOTE | 2019-11-16 12:48 | Cardiac Procedure Note-CS/ASA ---
Pre-Procedure Note Pre-Op Procedure Note H&P Reviewed The H&P was reviewed, patient examined and no changes noted. Date H&P Reviewed: Nov 16, 2019 Time H&P Reviewed: 12:48 Conscious Sedation Pre-Proced Time 12:48 ASA Score 3 For ASA 3 and 4: Consider anesthesia and medical clearance. Also, for patients with a history of failed moderate sedation consider anesthesia. Airway Lungs Heart ASA score ASA 1: a normal healthy patient ASA 2: a patient with a mild systemic disease (mid diabetes, controlled hypertension, obesity ASA 3: a patient with a severe systemic disease that limits activity (angina, COPD, prior Myocardial infarction) ASA 4: a patient with an incapacitating disease that is a constant threat to life (CHF, renal failure) ASA 5: a moribund patient not expected to survive 24 hrs. (ruptured aneurysm) ASA 6: a declared brain- patient whose organs are being harvested. For emergent operations, add the letter E after the classification Mallampati Classification Grade 2 Sedation Plan Analgesia, Amnesia, Plan communicated to team members, Discussed options with patient/fam, Discussed risks with patient/fam The patient is an appropriate candidate to undergo the planned procedure, sedation, and anesthesia. The patient immediately re-assessed prior to indication. LYNDA HUGHES MD FACP FAC CCDS Nov 16, 2019 12:48
[2019-11-16 13:08] LABS: BASOPHILS % (AUTO) 0 % (0-10); EOSINOPHILS # (AUTO) 0.4 10^3/uL (0.0-0.3); EOSINOPHILS % (AUTO) 5 % (0-10); HEMATOCRIT 47 % (40-54); HEMOGLOBIN 15.4 G/DL (13.3-17.7); LYMPHOCYTES # (AUTO) 1.3 X 10^3 (1.0-4.0); LYMPHOCYTES % (AUTO) 18 % (12-44); MEAN CORPUSCULAR HEMOGLOBIN 29 PG (25-34); MEAN CORPUSCULAR HGB CONC 33 G/DL (32-36); MEAN CORPUSCULAR VOLUME 88 FL (80-99); MEAN PLATELET VOLUME 10.8 FL (7.4-10.4); MONOCYTES # (AUTO) 0.7 X 10^3 (0.0-1.0); MONOCYTES % (AUTO) 10 % (0-12); NEUTROPHILS # (AUTO) 4.7 X 10^3 (1.8-7.8); NEUTROPHILS % (AUTO) 66 % (42-75); PLATELET COUNT 291 10^3/uL (130-400); RED CELL DISTRIBUTION WIDTH 16.9 % (10.0-14.5)
[2019-11-16] MEDS ORDERED: METO100T12 PO (14:13)
[2019-11-16] MEDS ORDERED: CLOP75TA69 PO (14:13)
[2019-11-16] MEDS ORDERED: AMLO5TAB9 PO (14:13)
--- NOTE | 2019-11-16 14:14 | Discharge Inst-Cardiology ---
Discharge Inst-Cardiac Discharge Medications New Medications: Amlodipine Besylate (Amlodipine Besylate) 5 Mg Tablet 5 MG PO DAILY, #30 TAB 5 Refills Clopidogrel Bisulfate (Plavix) 75 Mg Tablet 75 MG PO DAILY, #30 TAB 5 Refills Metoprolol Tartrate (Metoprolol Tartrate) 100 Mg Tablet 100 MG PO BID, #60 TAB 5 Refills Continued Medications: Allopurinol (Allopurinol) 100 Mg Tablet 100 MG PO DAILY, TAB Alprazolam (Alprazolam) 0.5 Mg Tablet 0.5 MG PO BID PRN for ANXIETY, TAB Aspirin (Aspirin) 81 Mg Tab.chew 81 MG PO HS, TAB Citalopram Hydrobromide (Citalopram HBr) 40 Mg Tablet 40 MG PO HS, TAB Glipizide (Glipizide) 10 Mg Tablet 10 MG PO DAILY PRN for BS ABOVE 220, TAB Lovastatin (Lovastatin) 40 Mg Tablet 40 MG PO HS, TAB Pioglitazone HCl (Actos) 45 Mg Tablet 45 MG PO DAILY, TAB Pramipexole Di-HCl (Pramipexole Dihydrochloride) 0.25 Mg Tablet 0.5 MG PO 1700, TAB Tamsulosin HCl (Flomax) 0.4 Mg Cap 0.4 MG PO DAILY, CAP Tramadol HCl (Tramadol HCl) 50 Mg Tablet 100 MG PO Q4H PRN for PAIN-MODERATE, TAB Zolpidem Tartrate (Zolpidem Tartrate) 5 Mg Tablet 10 MG PO HS PRN for INSOMNIA, TAB Discontinued Medications: Hydrochlorothiazide (Hydrochlorothiazide) 50 Mg Tablet 50 MG PO DAILY, TAB Metformin HCl (Metformin HCl) 1,000 Mg Tablet 1000 MG PO BID, TAB Metoprolol Tartrate (Metoprolol Tartrate) 50 Mg Tablet 50 MG PO BID, TAB LYNDA HUGHES MD FACP FAC CCDS Nov 16, 2019 14:14
[2019-11-16] MEDS ORDERED: PATIENT MAY USE OWN MEDS, ALL PO SCH (14:15)
--- NOTE | 2019-11-16 14:15 | Discharge Inst-Post CATH ---
Discharge Inst-CATH/EP Post Cardiac Cath/EP D/C Inst Follow Up/Plan F/u with Dr Mars next week <b>CARDIAC CATH/EP PROCEDURE DISCHARGE INSTRUCTIONS</b> ACTIVITY * Go Home directly and rest. * Limit activity of the leg (or wrist if it was used) for 7 days including aerobics, swimming, jogging, bicycling, etc. * Restrict stair-climbing for 7 days if possible, if not, climb up with your non-cath leg, then bring together on the same step. * Avoid lifting, pushing, pulling or excessive movement of the affected extremity for 7 days. * Customary sexual activity may be resumed after 2 days-use caution not to use a position that strains or causes pain to the affected extremity. * No driving for 24 hours. * NO SMOKING. * Avoid straining for bowel movements for 7 days. * Gentle walking on level ground is allowed. * Returning to work will depend on the type of procedure and the results. Your doctor will discuss this with you. CALL YOUR DOCTOR FOR ANY OF THE FOLLOWING: *If bleeding from the puncture site occurs- Apply gentle pressure to site with clean cloth and call your doctor or EMS. * If a knot or lump forms under the skin, increases in size, or causes pain. * If bruising appears to be worsening or moving further down your leg instead of disappearing. * Temperature above 101 F. CARE OF YOUR GROIN INCISION; * Bruising or purple discoloration of the skin near the puncture site is common. * You may shower only, no bathtub bathing for 5 days. Be careful to avoid slipping as your leg may feel stiff. * If a closure device was used on your femoral artery, please see the attached guide regarding care of the device and your leg. * Leave dressing on FOR 24 hours. CARE OF YOUR WRIST INCISION; * Bruising or purple discoloration of the skin near the puncture site is common. * You may shower. * DO NOT submerge wrist. * Leave dressing on FOR 24 hours. LYNDA MARS MD FACP FAC CCDS Nov 16, 2019 14:15
--- NOTE | 2019-11-16 14:21 | CARDIAC CATHETERIZATION ---
DATE OF SERVICE: 11/16/2019 CARDIAC CATHETERIZATION REPORT The patient is a 69-year-old man with known coronary artery disease, who has recently been experiencing recurrent chest discomfort suggestive of recurrent angina. Cardiac catheterization was carried out after having obtained informed consent. DESCRIPTION OF PROCEDURE: He was brought to the cardiac catheterization laboratory in a fasting state. Right groin was prepared and draped in the usual sterile fashion. Lidocaine 1% was used for local anesthesia. Modified Seldinger technique was used to advance a 5-Mexican sheath in right femoral artery, 5-Mexican JL4 catheter for left coronary angiography, 5-Mexican JR4 catheter for right coronary angiography, 5-Mexican pigtail catheter was used for left heart catheterization and left ventricular angiography was not performed. This was to conserve contrast given the patient's chronic kidney disease stage III. Vigorous perioperative hydration was carried out before, during and after the procedure. At the end of the procedure, following removal of the diagnostic catheters, angiography of the right femoral artery was carried out through the sheath and Mynx was used to achieve hemostasis after sheath removal. He tolerated the procedure well. HEMODYNAMICS: Left ventricular end-diastolic pressure following coronary angiography was 12 mmHg. There is no significant pressure gradient on pullback across the aortic valve. Ascending aortic pressure was 135/65 with a mean 89 mmHg. CORONARY ANGIOGRAPHY: Diffuse coronary calcification is present. Left main coronary artery does not exhibit significant obstructive disease. Left anterior descending artery has a patent stent in its mid portion. There is diffuse moderate disease throughout the left anterior descending. The second diagonal branch, left anterior descending has 60% to 70% proximal stenosis. This was a long stenosis in a relatively small caliber vessel. The left circumflex artery has a patent stent in its mid portion and there is a distal 60% to 70% stenosis that includes the bifurcation of the left circumflex with terminal obtuse marginal. The vessel is of a relatively small caliber. The right coronary artery is large and dominant and there is a patent stent in its proximal portion. The right coronary artery has diffuse moderate disease. CONCLUSIONS: 1. Coronary artery disease consisting of diffuse moderate disease. The second diagonal branch has 60% to 70% proximal stenosis. The left circumflex artery has 60% to 70% distal stenosis. The left anterior descending artery has a patent stent in its mid portion. The size is unknown. The left circumflex artery has a patent stent in its mid portion. This is Alpine Xience 2.75 x 12. The right coronary artery has a patent stent in its proximal portion that is known to be 3.5 x 15 mm. 2. Normal left ventricular end-diastolic pressure. DISCUSSION AND RECOMMENDATIONS: The lesions in the distal left circumflex and the second diagonal branch are type C lesions. They are of moderately severe intensity. There is considerable risk to intervention. The plan is to carry out medical therapy first. If medical therapy fails, consideration can be given to a relatively high risk intervention to these vessels. Close outpatient followup is advised. Job ID: [id number] DocumentID: [id number] Dictated Date: 11/16/2019 14:06:14 Floor Press Operator Date: 11/16/2019 14:20:59 Dictated By: LYNDA HUGHES MD, MA, FACP, FACC,
== END 2019-11-16 18:10 | disposition home or self-care (01) ==
LOC: CATH 09:48 → SDC 14:30 → CATH 18:10
PROVIDERS: ATTEND Internal Medicine Cardiovascular Disease
DX: I25.10 Atherosclerotic heart disease of native coronary artery without angina pectoris (principal); E11.9 Type 2 diabetes mellitus without complications; E78.5 Hyperlipidemia, unspecified; E66.9 Obesity, unspecified; I11.0 Hypertensive heart disease with heart failure; I50.41 Acute combined systolic (congestive) and diastolic (congestive) heart failure; Z88.5 Allergy status to narcotic agent; Z79.82 Long term (current) use of aspirin; Z79.84 Long term (current) use of oral hypoglycemic drugs; Z79.891 Long term (current) use of opiate analgesic; Z79.899 Other long term (current) drug therapy; Z68.41 Body mass index [BMI] 40.0-44.9, adult
CPT/HCPCS: 80053; 80061; 85025; 85610; 85730; 87081; 93458; C1760; C1894; 36415; 93005

== ENCOUNTER → 2019-12-13 | Outpatient (CLI) | payer MEDICARE, OTHER ==
[~2019-12-13] MED LIST changes: +ALLO100T PO; +AMLO5TAB9 PO; +CLOP75TA69 PO; +HYDR50TA3 PO; +METO100T12 PO; +PIOG45TA7 PO; +TMSL.4C PO; +ZOLP5TAB7 PO
--- NOTE | 2019-12-13 09:44 | Diagnostic Imaging Report ---
INDICATION: Shortness of breath. COMPARISON STUDY: Chest from 03/08/2017. FINDINGS: Frontal and lateral views of the chest demonstrate the lungs to be clear. The heart and vascularity are normal. There are no pleural effusions. IMPRESSION: Negative chest. Dictated by: Dictated on workstation # [id number]
== END ==
LOC: RAD 09:08
DX: R06.09 Other forms of dyspnea (principal)
CPT/HCPCS: 71046

== ENCOUNTER → 2019-12-24 | Outpatient (CLI) | payer MEDICARE, OTHER | LOC: LABNPT 07:20 | PROVIDERS: ATTEND Otolaryngology Otolaryngology/Facial Plastic Surgery | DX: R53.83 Other fatigue (principal); J32.9 Chronic sinusitis, unspecified; Z20.828 Contact with and (suspected) exposure to other viral communicable diseases | CPT/HCPCS: 84443; U0002; 87635 ==

== ENCOUNTER → 2019-12-28 | Outpatient (CLI) | payer MEDICARE, OTHER ==
--- NOTE | 2019-12-28 18:09 | Diagnostic Imaging Report ---
PROCEDURE: CT sinuses without contrast TECHNIQUE: Multiple contiguous axial images were obtained through the sinuses without the use of intravenous contrast. Coronal and sagittal reformations were then performed. Auto Exposure Controls were utilized during the CT exam to meet ALARA standards for radiation dose reduction. INDICATION: Chronic sinusitis, fatigue, nasal pain. COMPARISON: None. FINDINGS: There is rightward nasal septal deviation and spurring. The turbinates had an unremarkable appearance. The nasal bones themselves unremarkable. The bony orbital chandler and maxillary chandler are intact. The maxillary sinuses are clear. The ethmoid air cell is clear. The frontal sinuses clear. Sphenoid sinuses clear. The mastoid air cells and middle ear cavities clear. No bony destruction. No ostial obstruction. Orbital contents unremarkable. IMPRESSION: Nasal septal spurring and deviation. Clear paranasal sinuses with no ostial obstruction, bony destruction or air-fluid levels. Dictated by: Dictated on workstation # [id number]
== END ==
LOC: RAD 14:56
PROVIDERS: ATTEND Otolaryngology Otolaryngology/Facial Plastic Surgery
DX: R53.83 Other fatigue (principal); J32.9 Chronic sinusitis, unspecified; J34.2 Deviated nasal septum; J34.89 Other specified disorders of nose and nasal sinuses
CPT/HCPCS: 36415; 70486; 84443

== ENCOUNTER → 2021-04-17 | Outpatient (CLI) | payer MEDICARE, OTHER ==
[~2021-04-17] MED LIST changes: +AMLO-250 PO; -AMLO5TAB9 PO; -CITA40TA11 PO; +CITA40TA13 PO; -HYDR50TA3 PO; +HYDR50TA6 PO; -LISI-552 PO; +LISI20TA26 PO; -LISI40TA PO; +LISI40TA9 PO; -OMEP40CA27 PO; +OMEP40CA6 PO; +POTA-160 PO; -POTA10TA6 PO
== END ==
LOC: LABNPT 08:18
DX: Z20.822 Contact with and (suspected) exposure to COVID-19 (principal)
CPT/HCPCS: 87636

== ENCOUNTER → 2022-07-04 | Outpatient (CLI) | payer MEDICARE, OTHER ==
[~2022-07-04] MED LIST changes: +CLOP-31 PO; -CLOP75TA69 PO
== END ==
LOC: WOUNDCARE 12:34
PROVIDERS: ATTEND Family Medicine
DX: L97.322 Non-pressure chronic ulcer of left ankle with fat layer exposed (principal); L97.522 Non-pressure chronic ulcer of other part of left foot with fat layer exposed; I70.243 Atherosclerosis of native arteries of left leg with ulceration of ankle; L03.116 Cellulitis of left lower limb; E11.621 Type 2 diabetes mellitus with foot ulcer; E11.622 Type 2 diabetes mellitus with other skin ulcer; E11.65 Type 2 diabetes mellitus with hyperglycemia; E11.22 Type 2 diabetes mellitus with diabetic chronic kidney disease; N18.30 Chronic kidney disease, stage 3 unspecified; E66.01 Morbid (severe) obesity due to excess calories; I89.0 Lymphedema, not elsewhere classified
CPT/HCPCS: 11042; 87070; 87077; 87205; A6197; G0463; 87186

== ENCOUNTER → 2022-07-11 | Outpatient (CLI) | payer MEDICARE | LOC: WOUNDCARE 14:36 | PROVIDERS: ATTEND Family Medicine | DX: L97.322 Non-pressure chronic ulcer of left ankle with fat layer exposed (principal); L97.522 Non-pressure chronic ulcer of other part of left foot with fat layer exposed; I70.243 Atherosclerosis of native arteries of left leg with ulceration of ankle; L03.116 Cellulitis of left lower limb; E11.621 Type 2 diabetes mellitus with foot ulcer; E11.622 Type 2 diabetes mellitus with other skin ulcer; E11.65 Type 2 diabetes mellitus with hyperglycemia; E11.22 Type 2 diabetes mellitus with diabetic chronic kidney disease; N18.30 Chronic kidney disease, stage 3 unspecified; E66.01 Morbid (severe) obesity due to excess calories; I89.0 Lymphedema, not elsewhere classified; B95.2 Enterococcus as the cause of diseases classified elsewhere; E11.52 Type 2 diabetes mellitus with diabetic peripheral angiopathy with gangrene | CPT/HCPCS: 11042; G0463 ==

== ENCOUNTER → 2022-07-25 | Outpatient (CLI) | payer MEDICARE | LOC: WOUNDCARE 14:22 | PROVIDERS: ATTEND Family Medicine | DX: L97.322 Non-pressure chronic ulcer of left ankle with fat layer exposed (principal); L97.522 Non-pressure chronic ulcer of other part of left foot with fat layer exposed; I70.243 Atherosclerosis of native arteries of left leg with ulceration of ankle; L03.116 Cellulitis of left lower limb; E11.621 Type 2 diabetes mellitus with foot ulcer; E11.622 Type 2 diabetes mellitus with other skin ulcer; E11.65 Type 2 diabetes mellitus with hyperglycemia; E11.22 Type 2 diabetes mellitus with diabetic chronic kidney disease; N18.30 Chronic kidney disease, stage 3 unspecified; E66.01 Morbid (severe) obesity due to excess calories; I89.0 Lymphedema, not elsewhere classified; B95.2 Enterococcus as the cause of diseases classified elsewhere; E11.52 Type 2 diabetes mellitus with diabetic peripheral angiopathy with gangrene; I96 Gangrene, not elsewhere classified | CPT/HCPCS: 11042; A6197; G0463 ==

== ENCOUNTER → 2022-08-14 | Outpatient (CLI) | payer MEDICARE | LOC: WOUNDCARE 13:17 | PROVIDERS: ATTEND Family Medicine | DX: I96 Gangrene, not elsewhere classified (principal); L97.522 Non-pressure chronic ulcer of other part of left foot with fat layer exposed; L97.322 Non-pressure chronic ulcer of left ankle with fat layer exposed; E11.621 Type 2 diabetes mellitus with foot ulcer; E11.622 Type 2 diabetes mellitus with other skin ulcer; E11.65 Type 2 diabetes mellitus with hyperglycemia; N18.30 Chronic kidney disease, stage 3 unspecified; I70.243 Atherosclerosis of native arteries of left leg with ulceration of ankle; L03.116 Cellulitis of left lower limb; I89.0 Lymphedema, not elsewhere classified; E66.01 Morbid (severe) obesity due to excess calories; Z91.199 Patient's noncompliance with other medical treatment and regimen due to unspecified reason; Z91.119 Patient's noncompliance with dietary regimen due to unspecified reason; Z68.39 Body mass index [BMI] 39.0-39.9, adult | CPT/HCPCS: 11042; G0463 ==

== ENCOUNTER → 2022-08-21 | Outpatient (CLI) | payer MEDICARE | LOC: WOUNDCARE 13:34 | PROVIDERS: ATTEND Family Medicine | DX: I96 Gangrene, not elsewhere classified (principal); I70.243 Atherosclerosis of native arteries of left leg with ulceration of ankle; L97.522 Non-pressure chronic ulcer of other part of left foot with fat layer exposed; L97.322 Non-pressure chronic ulcer of left ankle with fat layer exposed; E11.621 Type 2 diabetes mellitus with foot ulcer; E11.622 Type 2 diabetes mellitus with other skin ulcer; E11.65 Type 2 diabetes mellitus with hyperglycemia; N18.30 Chronic kidney disease, stage 3 unspecified; I89.0 Lymphedema, not elsewhere classified; E66.01 Morbid (severe) obesity due to excess calories; L97.512 Non-pressure chronic ulcer of other part of right foot with fat layer exposed; L97.212 Non-pressure chronic ulcer of right calf with fat layer exposed; I70.232 Atherosclerosis of native arteries of right leg with ulceration of calf; Z91.199 Patient's noncompliance with other medical treatment and regimen due to unspecified reason; Z91.119 Patient's noncompliance with dietary regimen due to unspecified reason; Z68.39 Body mass index [BMI] 39.0-39.9, adult | CPT/HCPCS: 11042; A6212; G0463 ==

== ENCOUNTER → 2022-08-29 | Outpatient (CLI) | payer MEDICARE | LOC: WOUNDCARE 12:26 | PROVIDERS: ATTEND Family Medicine | DX: L97.322 Non-pressure chronic ulcer of left ankle with fat layer exposed (principal); L97.522 Non-pressure chronic ulcer of other part of left foot with fat layer exposed; I70.243 Atherosclerosis of native arteries of left leg with ulceration of ankle; E11.621 Type 2 diabetes mellitus with foot ulcer; E11.622 Type 2 diabetes mellitus with other skin ulcer; E11.65 Type 2 diabetes mellitus with hyperglycemia; E11.22 Type 2 diabetes mellitus with diabetic chronic kidney disease; N18.30 Chronic kidney disease, stage 3 unspecified; E66.01 Morbid (severe) obesity due to excess calories; I89.0 Lymphedema, not elsewhere classified; Z91.199 Patient's noncompliance with other medical treatment and regimen due to unspecified reason; Z91.119 Patient's noncompliance with dietary regimen due to unspecified reason; L97.512 Non-pressure chronic ulcer of other part of right foot with fat layer exposed; L97.212 Non-pressure chronic ulcer of right calf with fat layer exposed; I70.232 Atherosclerosis of native arteries of right leg with ulceration of calf; E11.52 Type 2 diabetes mellitus with diabetic peripheral angiopathy with gangrene; I96 Gangrene, not elsewhere classified | CPT/HCPCS: 11042; G0463 ==

== ENCOUNTER → 2022-09-12 | Outpatient (CLI) | payer MEDICARE | LOC: WOUNDCARE 12:25 | PROVIDERS: ATTEND Family Medicine | DX: L97.322 Non-pressure chronic ulcer of left ankle with fat layer exposed (principal); L97.522 Non-pressure chronic ulcer of other part of left foot with fat layer exposed; I70.243 Atherosclerosis of native arteries of left leg with ulceration of ankle; E11.621 Type 2 diabetes mellitus with foot ulcer; E11.622 Type 2 diabetes mellitus with other skin ulcer; E11.65 Type 2 diabetes mellitus with hyperglycemia; E11.22 Type 2 diabetes mellitus with diabetic chronic kidney disease; N18.30 Chronic kidney disease, stage 3 unspecified; E66.01 Morbid (severe) obesity due to excess calories; I89.0 Lymphedema, not elsewhere classified; Z91.199 Patient's noncompliance with other medical treatment and regimen due to unspecified reason; Z91.119 Patient's noncompliance with dietary regimen due to unspecified reason; L97.512 Non-pressure chronic ulcer of other part of right foot with fat layer exposed; L97.212 Non-pressure chronic ulcer of right calf with fat layer exposed; I70.232 Atherosclerosis of native arteries of right leg with ulceration of calf; E11.52 Type 2 diabetes mellitus with diabetic peripheral angiopathy with gangrene | CPT/HCPCS: 11042; G0463 ==

== ENCOUNTER → 2022-10-03 | Outpatient (CLI) | payer MEDICARE | LOC: WOUNDCARE 12:26 | PROVIDERS: ATTEND Family Medicine | DX: L97.322 Non-pressure chronic ulcer of left ankle with fat layer exposed (principal); L97.522 Non-pressure chronic ulcer of other part of left foot with fat layer exposed; I70.243 Atherosclerosis of native arteries of left leg with ulceration of ankle; E11.621 Type 2 diabetes mellitus with foot ulcer; E11.622 Type 2 diabetes mellitus with other skin ulcer; E11.65 Type 2 diabetes mellitus with hyperglycemia; E11.22 Type 2 diabetes mellitus with diabetic chronic kidney disease; N18.30 Chronic kidney disease, stage 3 unspecified; E66.01 Morbid (severe) obesity due to excess calories; I89.0 Lymphedema, not elsewhere classified; Z91.199 Patient's noncompliance with other medical treatment and regimen due to unspecified reason; Z91.119 Patient's noncompliance with dietary regimen due to unspecified reason; L97.512 Non-pressure chronic ulcer of other part of right foot with fat layer exposed; L97.212 Non-pressure chronic ulcer of right calf with fat layer exposed; I70.232 Atherosclerosis of native arteries of right leg with ulceration of calf | CPT/HCPCS: A6212; G0463; 99212 ==

== ENCOUNTER → 2022-11-12 | Outpatient (CLI) | payer MEDICARE, OTHER ==
--- NOTE | 2022-11-12 16:33 | Diagnostic Imaging Report ---
EXAMINATION: Chest 2 view HISTORY: Dyspnea. COMPARISON: 12/13/2019. FINDINGS: The lung volumes are normal. No focal consolidation is seen. No large pleural effusion or pneumothorax is seen. The cardiomediastinal silhouette is normal in size and contour. No acute osseous abnormality is seen. IMPRESSION: 1. No acute pleuroparenchymal process. Dictated by: Dictated on workstation # [id number]
== END ==
LOC: RAD 16:13
PROVIDERS: ATTEND Nurse Practitioner Family
DX: R06.00 Dyspnea, unspecified (principal)
CPT/HCPCS: 71046

== ENCOUNTER → 2022-12-09 | Outpatient (CLI) | payer MEDICARE, OTHER | LOC: CARD 13:30 | PROVIDERS: ATTEND Nurse Practitioner Family | DX: I51.9 Heart disease, unspecified (principal) | CPT/HCPCS: 93306 ==